=== PATIENT | male | born 1955 ===

== ENCOUNTER 2018-07-04 07:43 | Outpatient (CLI) | payer OTHER ==
[~2018-07-04 07:43] MED LIST: ATENOLOL25 MG; COZAAR25 MG
== END 2018-07-04 07:50 | disposition home or self-care (01) ==
LOC: RX STUDY 07:43
DX: R13.19 Other dysphagia (principal)

== ENCOUNTER → 2021-01-20 | Outpatient (CLI) | payer OTHER | END | disposition home or self-care (01) | LOC: SONOGRAMA 07:54 → MAMO-SONO 08:30 | PROVIDERS: ATTEND Orthopaedic Surgery | DX: M25.511 Pain in right shoulder (principal); M25.512 Pain in left shoulder; M77.11 Lateral epicondylitis, right elbow ==